=== PATIENT | female | born 1960 | race Caucasian/White ===

== ENCOUNTER 2017-04-21 07:26 | Day surgery (SDC) | payer MEDICAID ==
[~2017-04-21] VITALS: Ht 162.6 cm; Wt 112.6 kg
[~2017-04-21 07:26] MED LIST: ATOR20TA PO; BUPR150T8 PO; Diphenhydramine Hcl PO; ENOX100S3 SQ; HYDR-3972 PO; LEVO150T PO; LORA10TA7 PO; MELA3TAB PO; OXYC15TA88 PO; PSEU-259 PO; ZOLP10TA5 PO
[2017-04-21 07:43] VITALS: BP 125/68
[2017-04-21] MEDS ORDERED: normal saline 1000ml 1,000 ML IV PRN (07:45)
[2017-04-21] MEDS ORDERED: albumin (human) 25% 100 ML IV solution IV PRN (07:45)
[2017-04-21] MEDS ORDERED: FURO-149 PO (07:55)
[2017-04-21] MEDS ORDERED: GABA300C PO (07:55)
[2017-04-21] MEDS ORDERED: MYC15CR TOP (07:55)
[2017-04-21] MEDS ORDERED: DEXA4TAB2 PO (07:55)
[2017-04-21 08:40] VITALS: BP 120/74
[2017-04-21 08:45] VITALS: BP 140/77
[2017-04-21 09:00] VITALS: BP 131/73
[2017-04-21 09:10] VITALS: BP 135/71
== END 2017-04-21 09:20 | disposition home or self-care (01) ==
LOC: SSTAY O 07:26
PROVIDERS: ATTEND Radiology Diagnostic Radiology
DX: R18.8 Other ascites (principal); Z85.42 Personal history of malignant neoplasm of other parts of uterus; Z88.6 Allergy status to analgesic agent; Z90.710 Acquired absence of both cervix and uterus; Z98.890 Other specified postprocedural states; Z88.8 Allergy status to other drugs, medicaments and biological substances; Z79.1 Long term (current) use of non-steroidal anti-inflammatories (NSAID); Z79.899 Other long term (current) drug therapy
CPT/HCPCS: 49083; A6257; A6449; J7030

== ENCOUNTER 2017-05-20 10:13 | Outpatient (CLI) | payer MEDICAID ==
[~2017-05-20 10:13] MED LIST changes: +DEXA4TAB2 PO; -Diphenhydramine Hcl PO; -ENOX100S3 SQ; +FURO-149 PO; +GABA300C PO; -HYDR-3972 PO; -MELA3TAB PO; +MYC15CR TOP; -OXYC15TA88 PO; -PSEU-259 PO; -ZOLP10TA5 PO
[2017-05-20] MEDS ORDERED: iohexol 300mg/ml 100ml inj. ONE (10:50)
== END 2017-05-20 23:59 | disposition home or self-care (01) ==
LOC: 64 CT 10:13
PROVIDERS: ATTEND Obstetrics & Gynecology
DX: C78.01 Secondary malignant neoplasm of right lung (principal); C54.1 Malignant neoplasm of endometrium; D17.71 Benign lipomatous neoplasm of kidney; N13.30 Unspecified hydronephrosis
CPT/HCPCS: 74177; J7030; Q9967

== ENCOUNTER 2017-09-24 08:17 | Day surgery (SDC) | payer MEDICAID ==
[~2017-09-24 08:17] MED LIST changes: -DEXA4TAB2 PO; +DEXA4TAB7 PO
[2017-09-24 08:45] VITALS: BP 134/81
[2017-09-24] MEDS ORDERED: LIDOcaine 1% (10mg/ml)/PF 5ml amp IJ ONE (09:15)
== END 2017-09-24 09:20 | disposition home or self-care (01) ==
LOC: SSTAY O 08:17
PROVIDERS: ATTEND Radiology Diagnostic Radiology
DX: R18.8 Other ascites (principal); R14.0 Abdominal distension (gaseous); Z85.42 Personal history of malignant neoplasm of other parts of uterus; Z90.710 Acquired absence of both cervix and uterus; Z88.5 Allergy status to narcotic agent; Z79.891 Long term (current) use of opiate analgesic; Z91.048 Other nonmedicinal substance allergy status; Z87.891 Personal history of nicotine dependence; Z88.6 Allergy status to analgesic agent; Z79.1 Long term (current) use of non-steroidal anti-inflammatories (NSAID); Z88.8 Allergy status to other drugs, medicaments and biological substances; Z79.899 Other long term (current) drug therapy; Z98.890 Other specified postprocedural states
CPT/HCPCS: 76705; A6257; J3490

== ENCOUNTER 2017-10-29 13:17 | Outpatient (CLI) | payer MEDICAID | END 2017-10-29 23:59 | disposition home or self-care (01) | LOC: LAB 13:17 | PROVIDERS: ATTEND Obstetrics & Gynecology | DX: C54.1 Malignant neoplasm of endometrium (principal); Z87.891 Personal history of nicotine dependence | CPT/HCPCS: 71046 ==

== ENCOUNTER 2017-11-11 08:19 | Outpatient (CLI) | payer MEDICAID ==
[~2017-11-11 08:19] MED LIST changes: +DEXA4TAB68 PO; -DEXA4TAB7 PO
[2017-11-11] MEDS ORDERED: iohexol 300mg/ml 100ml inj. ONE (08:43)
== END 2017-11-11 23:59 | disposition home or self-care (01) ==
LOC: 64 CT 08:19
PROVIDERS: ATTEND Obstetrics & Gynecology
DX: C54.1 Malignant neoplasm of endometrium (principal); R31.0 Gross hematuria; Z90.710 Acquired absence of both cervix and uterus; Z87.891 Personal history of nicotine dependence
CPT/HCPCS: 71260; 74177; J7030; Q9967

== ENCOUNTER 2018-03-05 15:37 | Outpatient (CLI) | payer MEDICAID | END 2018-03-05 23:59 | disposition home or self-care (01) | LOC: VAS 15:37 | DX: I82.4Z2 Acute embolism and thrombosis of unspecified deep veins of left distal lower extremity (principal); M79.604 Pain in right leg; E66.9 Obesity, unspecified; Z87.891 Personal history of nicotine dependence | CPT/HCPCS: 93970 ==

== ENCOUNTER 2018-04-15 14:40 | Inpatient (IN) | payer MEDICAID ==
[~2018-04-15] VITALS: Ht 162.6 cm; Wt 111.4 kg
[2018-04-15 15:34] LABS: BASOPHILS % (AUTO) 0.1 % (0-1); EOSINOPHILS % (AUTO) 0.2 % (0-6); HEMATOCRIT 30.5 % (35.0-45.0); HEMOGLOBIN 9.9 g/dl (12.0-16.0); LYMPHOCYTES # (AUTO) 1.1 X10'3 (1.1-4.8); LYMPHOCYTES % (AUTO) 6.1 % (21-51); MEAN CORPUSCULAR HEMOGLOBIN 27.3 PG (27.0-31.0); MEAN CORPUSCULAR HGB CONC 32.3 % (33.0-36.5); MEAN CORPUSCULAR VOLUME 84.3 FL (78-98); MEAN PLATELET VOLUME 9.1 FL (7.4-10.4); MONOCYTES % (AUTO) 5.3 % (2-12); NEUTROPHILS # (AUTO) 16.5 X10'3 (1.8-7.7); NEUTROPHILS % (AUTO) 88.3 % (42-75); PLATELET COUNT 88 X10'3 (140-440); RED BLOOD COUNT 3.62 X10'6 (4.20-5.60); RED CELL DISTRIBUTION WIDTH 18.8 % (11.5-14.5); WHITE BLOOD COUNT 18.6 X10'3 (4.5-11.0)
[2018-04-15 15:48] LABS: INR 1.1 INR; PARTIAL THROMBOPLASTIN TIME 22 SECONDS (22-32); PROTHROMBIN TIME 10.7 SECONDS (9.0-12.0)
[2018-04-15 15:58] LABS: ALANINE AMINOTRANSFERASE 41 U/L (12-78); ALBUMIN 2.7 G/DL (3.4-5.0); ALBUMIN/GLOBULIN RATIO 0.6 (1.1-1.5); ALKALINE PHOSPHATASE 279 IU/L (46-116); ANION GAP 12 (8-16); ASPARTATE AMINO TRANSFERASE 64 U/L (10-37); BILIRUBIN,TOTAL 0.3 MG/DL (0.1-1.0); BLOOD UREA NITROGEN 21 MG/DL (7-18); BUN/CREATININE RATIO 17.2 (6.6-38.0); CHLORIDE 97 MMOL/L (99-107); CREATININE 1.22 MG/DL (0.40-0.90); GLUCOSE 168 MG/DL (70-104); POTASSIUM 3.7 MMOL/L (3.5-5.1); SODIUM 136 MMOL/L (135-145); TOTAL CARBON DIOXIDE 26.6 MMOL/L (24-32); TOTAL PROTEIN 7.5 G/DL (6.4-8.2); eGFR 46 ML/MIN
[2018-04-15] MEDS ORDERED: normal saline 1000ML IV soln IVB ONE (16:30)
[2018-04-15] MEDS ORDERED: iohexol 350MG/ML 100ml bottle IV ONE (17:01)
[2018-04-15] MEDS ORDERED: calcitonin,salmon synthetic 200 units/ml inj IM STA (17:03)
[2018-04-15] MEDS ORDERED: zoledronic acid/mannitol-water 100 ML IV ONE (17:05)
--- NOTE | 2018-04-15 17:29 | NUR ---
WAITING ON PHARM FOR MED
--- NOTE | 2018-04-15 17:44 | NUR ---
PHARM DOES NOT HAVE [employer] CALLING SHELLIE
[2018-04-15] MEDS ORDERED: ondansetron/PF 4mg/2ml inj IV PRN (18:35)
[2018-04-15] MEDS ORDERED: potassium Cl 40MEQ/NS 500ml 500 ML IV PRN ×2 (18:35)
[2018-04-15] MEDS ORDERED: magnesium 2GM in 50ml NS 50 ML IV PRN (18:35)
[2018-04-15] MEDS ORDERED: acetaminophen 325mg tablet PO PRN (18:35)
[2018-04-15] MEDS ORDERED: potassium Cl 20 mEq SR tablet PO PRN (18:35)
[2018-04-15] MEDS ORDERED: magnesium 4gm in 100ml NS 100 ML IV PRN (18:35)
[2018-04-15] MEDS: normal saline 1000ml 1,000 ML IV SCH (18:48)
--- NOTE | 2018-04-15 19:04 | NUR ---
Patient resting comfortably in bed with no distress. Spoke to Dr. Macdonald regarding elevated lactic acid and amount of normal saline given. He orders an additional bolus of saline.
[2018-04-15] MEDS ORDERED: normal saline 1000ml 1,000 ML IV ONE (19:05)
--- NOTE | 2018-04-15 19:09 | NUR ---
Spoke to pharmacy who believes the medication may have just been delivered. She states med will be varified and delivered.
--- NOTE | 2018-04-15 22:08 | NUR ---
pt assisted to bsc to void.
--- NOTE | 2018-04-16 00:50 | NUR ---
Patient requesting to stop normal saline because it is causing her to wake and have to urgently urinate. Patient is tolerating PO fluids and has several cups of water at her bedside.
[2018-04-16] MEDS: normal saline 1000ml 1,000 ML IV SCH ×3 (02:33→18:40)
[2018-04-16 04:36] LABS: BASOPHILS % (AUTO) 0.1 % (0-1); EOSINOPHILS % (AUTO) 0.2 % (0-6); HEMATOCRIT 25.7 % (35.0-45.0); HEMOGLOBIN 8.1 g/dl (12.0-16.0); LYMPHOCYTES # (AUTO) 0.9 X10'3 (1.1-4.8); LYMPHOCYTES % (AUTO) 6.1 % (21-51); MEAN CORPUSCULAR HGB CONC 31.6 % (33.0-36.5); MEAN CORPUSCULAR VOLUME 85.3 FL (78-98); MEAN PLATELET VOLUME 9.3 FL (7.4-10.4); MONOCYTES # (AUTO) 0.7 X10'3 (0-0.9); MONOCYTES % (AUTO) 4.5 % (2-12); NEUTROPHILS # (AUTO) 13.7 X10'3 (1.8-7.7); NEUTROPHILS % (AUTO) 89.1 % (42-75); PLATELET COUNT 62 X10'3 (140-440); RED BLOOD COUNT 3.02 X10'6 (4.20-5.60); RED CELL DISTRIBUTION WIDTH 18.3 % (11.5-14.5); WHITE BLOOD COUNT 15.3 X10'3 (4.5-11.0)
[2018-04-16 04:47] LABS: ALBUMIN 2.3 G/DL (3.4-5.0); ANION GAP 11 (8-16); BLOOD UREA NITROGEN 16 MG/DL (7-18); BUN/CREATININE RATIO 16.8 (6.6-38.0); CALCIUM 11.9 MG/DL (8.5-10.1); CHLORIDE 104 MMOL/L (99-107); CREATININE 0.95 MG/DL (0.40-0.90); GLUCOSE 150 MG/DL (70-104); MAGNESIUM 1.4 MG/DL (1.5-2.4); POTASSIUM 3.4 MMOL/L (3.5-5.1); SODIUM 139 MMOL/L (135-145); TOTAL CARBON DIOXIDE 23.7 MMOL/L (24-32); eGFR 61 ML/MIN
[2018-04-16 06:15] LABS: TOTAL CELLS COUNTED 100
[2018-04-16 06:16] LABS: BANDS% (MANUAL) 1 % (0-10); BASOPHILS % (MANUAL) 1 % (0-1); EOSINOPHILS % (MANUAL) 0 % (0-6); LARGE PLATELETS FEW; LYMPHOCYTES % (MANUAL) 6 % (21-51); MONOCYTES % (MANUAL) 6 % (2-12); NEUTROPHILS % (MANUAL) 86 % (42-75); PLATELET ESTIMATE DECREASED
[2018-04-16 06:17] LABS: ANISOCYTOSIS 2+; MICROCYTOSIS 1+; POLYCHROMASIA 1+; TOXIC GRANULATION 1+
--- NOTE | 2018-04-16 07:30 | NUR ---
ECHOCARDIOGRAM PERFORMED AT THE BEDSIDE.
[2018-04-16] MEDS: azithromycin/NS 500mg/250ml 250 ML IV SCH (08:16)
[2018-04-16] MEDS: potassium Cl 20 mEq SR tablet PO PRN ×2 (08:16→18:40)
[2018-04-16] MEDS: CefTRIAXone/D5W-Rocephin 1gm 50 ML IV SCH (08:16)
[2018-04-16] MEDS: K and/or MAG REPLACEMENT MC SCH (08:20)
[2018-04-16] MEDS: magnesium Cl slow-release 64mg tablet PO PRN ×2 (08:26→20:25)
[2018-04-16] MEDS ORDERED: furosemide 40mg tablet PO PRN (14:05)
[2018-04-16] MEDS ORDERED: BUPR-94 PO (14:25)
--- NOTE | 2018-04-16 18:46 | NUR ---
Received pt report for WELLNESS MANAGERAga. was able to ask question. awaiting pt arrival.
--- NOTE | 2018-04-16 18:46 | NUR ---
REPORT TO DANNA JACKSON AND ALL QUESTIONS ANSWERED.
[2018-04-16] MEDS ORDERED: OMEG-42 PO (19:02)
[2018-04-16] MEDS ORDERED: PROC-8 PO (19:02)
[2018-04-16] MEDS ORDERED: MULT-955 PO (19:02)
[2018-04-16] MEDS ORDERED: OXYC-615 PO (19:02)
[2018-04-16] MEDS ORDERED: DOCU100C41 PO (19:02)
[2018-04-16] MEDS ORDERED: PSEU-250 PO (19:02)
[2018-04-16] MEDS ORDERED: ONDA4TAB6 PO (19:02)
[2018-04-16] MEDS ORDERED: HYDR-4353 PO (19:02)
[2018-04-16] MEDS ORDERED: CALC-861 PO (19:02)
--- NOTE | 2018-04-16 19:10 | NUR ---
Pt arrived. belongings and food tray with pt. call light and personal belongings in reach. needs addressed. BLL, SR up x2, freq rounding. will continue to monitor.
[2018-04-16 19:15] VITALS: BP 126/61
[2018-04-16] MEDS: NYSTATIN CREAM - 30GM TUBE TP SCH (20:00)
[2018-04-16] MEDS: gabapentin 300mg capsule PO SCH (20:25)
--- NOTE | 2018-04-16 21:50 | NUR ---
Paged Dr. hTorne and he called. Addressing pt home medications for pain. Orders given and will continue to monitor.
[2018-04-16] MEDS ORDERED: oxyCODONE IR 5mg (immed. release) tablet PO ONE (21:55)
--- NOTE | 2018-04-16 22:05 | NUR ---
pt states that her medications will be going home with her daughter in the AM. pt unsure if she wants the flu vaccination at this time and to revisit the idea in the morning. the she is "tired and getting short." pt also has a wound to her right anterior pannus with a bandage over it. She doesn't want the dressing to be removed at this time and says that it can be addressed in the morning. will continue to monitor.
[2018-04-17] VITALS: BP 110/61
[2018-04-17] MEDS: potassium Cl 20 mEq SR tablet PO PRN (02:19)
[2018-04-17] MEDS: oxyCODONE IR 5mg (immed. release) tablet PO SCH ×4 (02:20→20:15)
[2018-04-17] MEDS: normal saline 1000ml 1,000 ML IV SCH ×2 (03:50→10:33)
[2018-04-17 05:15] LABS: ALBUMIN 2.2 G/DL (3.4-5.0); ANION GAP 9 (8-16); BLOOD UREA NITROGEN 11 MG/DL (7-18); BUN/CREATININE RATIO 13.9 (6.6-38.0); CALCIUM 10.7 MG/DL (8.5-10.1); CHLORIDE 106 MMOL/L (99-107); CREATININE 0.79 MG/DL (0.40-0.90); GLUCOSE 110 MG/DL (70-104); MAGNESIUM 1.4 MG/DL (1.5-2.4); POTASSIUM 3.8 MMOL/L (3.5-5.1); SODIUM 140 MMOL/L (135-145); TOTAL CARBON DIOXIDE 25.3 MMOL/L (24-32); eGFR 75 ML/MIN
[2018-04-17 05:19] LABS: BASOPHILS % (AUTO) 0.1 % (0-1); EOSINOPHILS # (AUTO) 0.1 X10'3 (0-0.9); EOSINOPHILS % (AUTO) 0.3 % (0-6); HEMATOCRIT 23.8 % (35.0-45.0); HEMOGLOBIN 7.6 g/dl (12.0-16.0); LYMPHOCYTES # (AUTO) 0.7 X10'3 (1.1-4.8); LYMPHOCYTES % (AUTO) 4.1 % (21-51); MEAN CORPUSCULAR HGB CONC 31.8 % (33.0-36.5); MEAN CORPUSCULAR VOLUME 84.8 FL (78-98); MEAN PLATELET VOLUME 9.3 FL (7.4-10.4); MONOCYTES % (AUTO) 5.5 % (2-12); NEUTROPHILS # (AUTO) 15.7 X10'3 (1.8-7.7); PLATELET COUNT 61 X10'3 (140-440); RED CELL DISTRIBUTION WIDTH 18.5 % (11.5-14.5); WHITE BLOOD COUNT 17.5 X10'3 (4.5-11.0)
--- NOTE | 2018-04-17 06:05 | NUR ---
Problems reprioritized. Patient report given, questions answered & plan of care reviewed with Shelley CLAY.
[2018-04-17 06:23] LABS: ANISOCYTOSIS 2+; HYPOCHROMASIA 1+; MICROCYTOSIS 1+; PLATELET ESTIMATE DECREASED; POLYCHROMASIA 1+; TOTAL CELLS COUNTED 100; TOXIC GRANULATION 1+
--- NOTE | 2018-04-17 06:52 | NUR ---
Patient in room [facility]. I have received report from Nilda CLAY and had the opportunity to ask questions and assume patient care.
[2018-04-17 07:23] VITALS: BP 104/54
[2018-04-17] MEDS: magnesium Cl slow-release 64mg tablet PO PRN ×2 (07:49→17:34)
[2018-04-17] MEDS: gabapentin 300mg capsule PO SCH ×3 (07:49→20:15)
[2018-04-17] MEDS: CefTRIAXone/D5W-Rocephin 1gm 50 ML IV SCH (07:49)
[2018-04-17] MEDS: atorvastatin 20mg tablet PO SCH (07:49)
[2018-04-17] MEDS: loratadine 10mg tablet PO SCH (07:50)
[2018-04-17] MEDS: levoTHYROXINE 75mcg tablet PO SCH (07:50)
[2018-04-17] MEDS: NYSTATIN CREAM - 30GM TUBE TP SCH ×2 (07:51→20:00)
[2018-04-17] MEDS: K and/or MAG REPLACEMENT MC SCH (08:00)
[2018-04-17] MEDS: azithromycin/NS 500mg/250ml 250 ML IV SCH (09:43)
[2018-04-17] MEDS: buPROPion 75mg tablet PO SCH ×2 (09:45→20:15)
[2018-04-17 12:31] VITALS: BP 118/60
[2018-04-17] MEDS ORDERED: iohexol 350MG/ML 100ml bottle IV ONE (13:45)
--- NOTE | 2018-04-17 18:18 | NUR ---
ptient went for CTA to r/o PE. See report. Seen by Dr Barker. Medicated for pain with scheduled pain relief. see EMAR. Daughter visiting. Report given to Cecelia CLAY
--- NOTE | 2018-04-17 18:18 | NUR ---
Patient in room [facility]. I have received report from Shelley CLAY and had the opportunity to ask questions and assume patient care. Patient eating at this time. Will continue to monitor.
[2018-04-17 20:00] VITALS: BP 126/61
--- NOTE | 2018-04-17 20:17 | NUR ---
Patient refused nystatin, states that she wants her daughter to apply tomorrow. Placed sheet between pannus to assist drying. Patient also refused optiifoam. Will continue to monitor.
[2018-04-18] VITALS: BP 120/60
[2018-04-18] MEDS: oxyCODONE IR 5mg (immed. release) tablet PO SCH ×5 (01:28→23:55)
--- NOTE | 2018-04-18 06:09 | NUR ---
Patient in room [facility]. I have received report from Cecelia CLAY and had the opportunity to ask questions and assume patient care.
[2018-04-18 06:27] LABS: ALBUMIN 2.3 G/DL (3.4-5.0); ANION GAP 9 (8-16); BLOOD UREA NITROGEN 12 MG/DL (7-18); BUN/CREATININE RATIO 13.6 (6.6-38.0); CALCIUM 10.1 MG/DL (8.5-10.1); CHLORIDE 105 MMOL/L (99-107); CREATININE 0.88 MG/DL (0.40-0.90); GLUCOSE 113 MG/DL (70-104); MAGNESIUM 1.5 MG/DL (1.5-2.4); POTASSIUM 3.8 MMOL/L (3.5-5.1); SODIUM 138 MMOL/L (135-145); TOTAL CARBON DIOXIDE 24.5 MMOL/L (24-32); eGFR 66 ML/MIN
[2018-04-18 06:38] LABS: BASOPHILS % (AUTO) 0.1 % (0-1); EOSINOPHILS # (AUTO) 0.1 X10'3 (0-0.9); EOSINOPHILS % (AUTO) 0.4 % (0-6); HEMATOCRIT 24.8 % (35.0-45.0); LYMPHOCYTES # (AUTO) 1.1 X10'3 (1.1-4.8); MEAN CORPUSCULAR HEMOGLOBIN 27.5 PG (27.0-31.0); MEAN CORPUSCULAR HGB CONC 32.2 % (33.0-36.5); MEAN CORPUSCULAR VOLUME 85.4 FL (78-98); MEAN PLATELET VOLUME 9.6 FL (7.4-10.4); MONOCYTES % (AUTO) 4.6 % (2-12); NEUTROPHILS # (AUTO) 18.8 X10'3 (1.8-7.7); NEUTROPHILS % (AUTO) 89.9 % (42-75); PLATELET COUNT 56 X10'3 (140-440); RED CELL DISTRIBUTION WIDTH 18.4 % (11.5-14.5)
[2018-04-18 07:00] VITALS: BP 142/65
[2018-04-18 07:41] LABS: ANISOCYTOSIS 2+; PLATELET ESTIMATE DECREASED; TOTAL CELLS COUNTED 100
[2018-04-18 07:42] LABS: HYPOCHROMASIA 1+; POLYCHROMASIA 2+; TOXIC GRANULATION 3+
[2018-04-18] MEDS: K and/or MAG REPLACEMENT MC SCH (08:00)
[2018-04-18] MEDS: atorvastatin 20mg tablet PO SCH (08:32)
[2018-04-18] MEDS: gabapentin 300mg capsule PO SCH ×3 (08:32→21:10)
[2018-04-18] MEDS: levoTHYROXINE 75mcg tablet PO SCH (08:34)
[2018-04-18] MEDS: loratadine 10mg tablet PO SCH (08:34)
[2018-04-18] MEDS: CefTRIAXone/D5W-Rocephin 1gm 50 ML IV SCH (08:34)
[2018-04-18] MEDS: buPROPion 75mg tablet PO SCH ×2 (08:42→19:36)
[2018-04-18] MEDS: NYSTATIN CREAM - 30GM TUBE TP SCH ×2 (08:42→19:38)
[2018-04-18] MEDS: azithromycin/NS 500mg/250ml 250 ML IV SCH (09:27)
[2018-04-18 11:00] VITALS: BP 118/68
[2018-04-18] MEDS: ipratropium/albuterol 3ml nebule NEB PRN ×2 (12:32→19:05)
--- NOTE | 2018-04-18 17:46 | NUR ---
Dr navarro into see patient discussed all tests given. structural metal worker contacted with regards options for patient. Awaiting call back. Daughter present.
--- NOTE | 2018-04-18 18:44 | NUR ---
Problems reprioritized. Patient report given, questions answered & plan of care reviewed with Raghu CLAY.
--- NOTE | 2018-04-18 18:45 | NUR ---
Patient in room [facility]. I have received report from ZUNILDA CLAY and had the opportunity to ask questions and assume patient care.
[2018-04-18 19:00] VITALS: BP 132/56
[2018-04-18] MEDS: apixaban 5mg tablet PO SCH (19:36)
[2018-04-19] VITALS: BP 179/50
[2018-04-19] MEDS: oxyCODONE IR 5mg (immed. release) tablet PO SCH ×5 (04:11→20:23)
[2018-04-19 05:33] LABS: BASOPHILS % (AUTO) 0.1 % (0-1); EOSINOPHILS # (AUTO) 0.1 X10'3 (0-0.9); EOSINOPHILS % (AUTO) 0.4 % (0-6); HEMATOCRIT 22.9 % (35.0-45.0); HEMOGLOBIN 7.4 g/dl (12.0-16.0); LYMPHOCYTES % (AUTO) 5.9 % (21-51); MEAN CORPUSCULAR HEMOGLOBIN 27.3 PG (27.0-31.0); MEAN CORPUSCULAR HGB CONC 32.1 % (33.0-36.5); MEAN PLATELET VOLUME 9.3 FL (7.4-10.4); MONOCYTES # (AUTO) 0.6 X10'3 (0-0.9); MONOCYTES % (AUTO) 3.7 % (2-12); NEUTROPHILS # (AUTO) 15.1 X10'3 (1.8-7.7); NEUTROPHILS % (AUTO) 89.9 % (42-75); PLATELET COUNT 54 X10'3 (140-440); WHITE BLOOD COUNT 16.8 X10'3 (4.5-11.0)
[2018-04-19 06:00] LABS: ALBUMIN 2.2 G/DL (3.4-5.0); ANION GAP 13 (8-16); BLOOD UREA NITROGEN 13 MG/DL (7-18); BUN/CREATININE RATIO 15.3 (6.6-38.0); CALCIUM 9.2 MG/DL (8.5-10.1); CHLORIDE 104 MMOL/L (99-107); CREATININE 0.85 MG/DL (0.40-0.90); GLUCOSE 121 MG/DL (70-104); MAGNESIUM 1.5 MG/DL (1.5-2.4); POTASSIUM 3.5 MMOL/L (3.5-5.1); SODIUM 139 MMOL/L (135-145); TOTAL CARBON DIOXIDE 22.5 MMOL/L (24-32); eGFR 69 ML/MIN
[2018-04-19 06:09] LABS: ANISOCYTOSIS 2+; ELLIPTOCYTES FEW; HYPOCHROMASIA 1+; PLATELET ESTIMATE DECREASED; POLYCHROMASIA FEW; TOTAL CELLS COUNTED 100; TOXIC GRANULATION 1+
--- NOTE | 2018-04-19 06:22 | NUR ---
Problems reprioritized. Patient report given, questions answered & plan of care reviewed with RAMSEY CLAY.
--- NOTE | 2018-04-19 06:27 | NUR ---
Patient in room [facility]. I have received report from DANNA VÁSQUEZ and had the opportunity to ask questions and assume patient care.
[2018-04-19 07:00] VITALS: BP 105/45
[2018-04-19] MEDS: levoTHYROXINE 75mcg tablet PO SCH (07:54)
[2018-04-19] MEDS: azithromycin/NS 500mg/250ml 250 ML IV SCH (07:56)
[2018-04-19] MEDS: loratadine 10mg tablet PO SCH (07:56)
[2018-04-19] MEDS: apixaban 5mg tablet PO SCH ×2 (07:56→20:21)
[2018-04-19] MEDS: buPROPion 75mg tablet PO SCH ×2 (08:00→20:22)
[2018-04-19] MEDS: NYSTATIN CREAM - 30GM TUBE TP SCH ×2 (08:00→20:23)
[2018-04-19] MEDS: gabapentin 300mg capsule PO SCH ×3 (08:00→20:22)
[2018-04-19] MEDS: K and/or MAG REPLACEMENT MC SCH (08:00)
[2018-04-19 09:14] VITALS: BP 118/55
[2018-04-19] MEDS: ipratropium/albuterol 3ml nebule NEB PRN ×2 (09:57→19:58)
[2018-04-19 12:14] VITALS: BP 96/67
[2018-04-19] MEDS: CefTRIAXone/D5W-Rocephin 1gm 50 ML IV SCH (12:30)
--- NOTE | 2018-04-19 18:06 | NUR ---
Received report from DANNA Hwang. Patient is awake and alert on room air, in no apparent distress. Visitors at bedside. Call light and items of frequent use within reach. Will continue to monitor.
--- NOTE | 2018-04-19 18:19 | NUR ---
Problems reprioritized. Patient report given, questions answered & plan of care reviewed with DANNA SHARP.
[2018-04-19 20:00] VITALS: BP 151/61
[2018-04-20] VITALS: BP 108/55
[2018-04-20] MEDS: oxyCODONE IR 5mg (immed. release) tablet PO SCH ×6 (00:40→16:00)
[2018-04-20 06:08] LABS: BASOPHILS % (AUTO) 0.1 % (0-1); EOSINOPHILS # (AUTO) 0.1 X10'3 (0-0.9); EOSINOPHILS % (AUTO) 0.7 % (0-6); HEMATOCRIT 22.9 % (35.0-45.0); HEMOGLOBIN 7.4 g/dl (12.0-16.0); LYMPHOCYTES # (AUTO) 0.7 X10'3 (1.1-4.8); LYMPHOCYTES % (AUTO) 4.7 % (21-51); MEAN CORPUSCULAR HEMOGLOBIN 27.7 PG (27.0-31.0); MEAN CORPUSCULAR HGB CONC 32.2 % (33.0-36.5); MEAN CORPUSCULAR VOLUME 85.9 FL (78-98); MEAN PLATELET VOLUME 8.9 FL (7.4-10.4); MONOCYTES # (AUTO) 0.7 X10'3 (0-0.9); MONOCYTES % (AUTO) 4.7 % (2-12); NEUTROPHILS # (AUTO) 13.6 X10'3 (1.8-7.7); NEUTROPHILS % (AUTO) 89.8 % (42-75); PLATELET COUNT 51 X10'3 (140-440); RED BLOOD COUNT 2.66 X10'6 (4.20-5.60); RED CELL DISTRIBUTION WIDTH 19.7 % (11.5-14.5); WHITE BLOOD COUNT 15.1 X10'3 (4.5-11.0)
[2018-04-20 06:16] LABS: ALBUMIN 2.2 G/DL (3.4-5.0); ANION GAP 13 (8-16); BLOOD UREA NITROGEN 12 MG/DL (7-18); BUN/CREATININE RATIO 15.2 (6.6-38.0); CALCIUM 8.8 MG/DL (8.5-10.1); CHLORIDE 104 MMOL/L (99-107); CREATININE 0.79 MG/DL (0.40-0.90); GLUCOSE 112 MG/DL (70-104); MAGNESIUM 1.6 MG/DL (1.5-2.4); POTASSIUM 3.6 MMOL/L (3.5-5.1); SODIUM 138 MMOL/L (135-145); TOTAL CARBON DIOXIDE 20.6 MMOL/L (24-32); eGFR 75 ML/MIN
--- NOTE | 2018-04-20 06:19 | NUR ---
Problems reprioritized. Patient report given, questions answered & plan of care reviewed with DANNA Vanegas.
--- NOTE | 2018-04-20 06:20 | NUR ---
Patient in room [facility]. I have received report from DANNA Huertas and had the opportunity to ask questions and assume patient care.
[2018-04-20 08:00] VITALS: BP 108/59
[2018-04-20] MEDS: K and/or MAG REPLACEMENT MC SCH (08:00)
[2018-04-20] MEDS: apixaban 5mg tablet PO SCH (08:09)
[2018-04-20] MEDS: loratadine 10mg tablet PO SCH (08:09)
[2018-04-20] MEDS: levoTHYROXINE 75mcg tablet PO SCH (08:09)
[2018-04-20] MEDS: gabapentin 300mg capsule PO SCH ×2 (08:09→12:38)
[2018-04-20] MEDS: buPROPion 75mg tablet PO SCH (08:10)
[2018-04-20] MEDS: NYSTATIN CREAM - 30GM TUBE TP SCH (08:12)
[2018-04-20] MEDS: CefTRIAXone/D5W-Rocephin 1gm 50 ML IV SCH (08:13)
[2018-04-20] MEDS: azithromycin/NS 500mg/250ml 250 ML IV SCH (09:08)
[2018-04-20] MEDS: ipratropium/albuterol 3ml nebule NEB PRN ×2 (09:18→15:31)
[2018-04-20 12:00] VITALS: BP 115/65
[2018-04-20] MEDS ORDERED: APIX5TAB3 PO (13:04)
[2018-04-20] MEDS ORDERED: IPRA3AMP9 NEB (13:04)
[2018-04-20] MEDS ORDERED: AMOX-580 PO (13:04)
--- NOTE | 2018-04-20 15:34 | NUR ---
I 04/27 Initial-Pt admit with SOB, recent PNA, foot pain, no known trauma per MD notes. Pt with open wound d/t friction noticed over right lower abdomen, will monitor. Pt denies chest pain, orthopnea, dyspnea or ankle edema per MD notes. Pt recent admit to [facility] for abdominal wall cellulitis and PNA. Pt is w/o N/V. LBM 04-19-. PO intake 75-100% most likely meeting nutrition needs at this time. Will continue to monitor. Rec: 1.Continue w/ Heart Healthy diet 2.Wt per rx 3.Routine bowel care Addendum: 04/20/18 at [address] Amended: Links added. Addendum: 04/21/18 at [address] RD agree with r d internship note
== END 2018-04-20 16:19 | disposition home health service (06) | DRG 720 ==
LOC: ER 14:41 → ED HOLD 18:33 → SUR 3N 04-16 19:10
PROVIDERS: ADMIT Internal Medicine; ATTEND Family Medicine
PROC: B32T1ZZ Computerized Tomography (CT Scan) of Left Pulmonary Artery using Low Osmolar Contrast (ICD-10-PCS; principal; 2018-04-15)
PROC: B3201ZZ Computerized Tomography (CT Scan) of Thoracic Aorta using Low Osmolar Contrast (ICD-10-PCS; 2018-04-15)
PROC: B32S1ZZ Computerized Tomography (CT Scan) of Right Pulmonary Artery using Low Osmolar Contrast (ICD-10-PCS; 2018-04-15)
PROC: 05HY33Z Insertion of Infusion Device into Upper Vein, Percutaneous Approach (ICD-10-PCS; 2018-04-15)
PROC: B32T1ZZ Computerized Tomography (CT Scan) of Left Pulmonary Artery using Low Osmolar Contrast (ICD-10-PCS; 2018-04-17)
PROC: B3201ZZ Computerized Tomography (CT Scan) of Thoracic Aorta using Low Osmolar Contrast (ICD-10-PCS; 2018-04-17)
PROC: B32S1ZZ Computerized Tomography (CT Scan) of Right Pulmonary Artery using Low Osmolar Contrast (ICD-10-PCS; 2018-04-17)
DX: A41.9 Sepsis, unspecified organism (principal); E66.01 Morbid (severe) obesity due to excess calories; E83.52 Hypercalcemia; D64.9 Anemia, unspecified; E11.9 Type 2 diabetes mellitus without complications; E03.9 Hypothyroidism, unspecified; E78.5 Hyperlipidemia, unspecified; M79.672 Pain in left foot; Z85.41 Personal history of malignant neoplasm of cervix uteri; Z85.42 Personal history of malignant neoplasm of other parts of uterus; Z79.01 Long term (current) use of anticoagulants; Z86.711 Personal history of pulmonary embolism; Z87.01 Personal history of pneumonia (recurrent); Z90.710 Acquired absence of both cervix and uterus; Z92.21 Personal history of antineoplastic chemotherapy; Z88.8 Allergy status to other drugs, medicaments and biological substances; Z88.5 Allergy status to narcotic agent; Z90.49 Acquired absence of other specified parts of digestive tract
CPT/HCPCS: 36415; 71046; 71275; 73630; 80048; 80053; 83605; 83735; 84443; 84484; 85025; 85610; 85730; 87040; 87070; 93005; 93306; 94640; 94760; 96360; 96361; 97161; 99285; G0378; J0456; J0630; J0696; J2405; J3489; J7030; Q9967